=== PATIENT | female | born 1995 | race African-American/Black ===

== ENCOUNTER 2016-11-20 08:11 | Emergency (ER) | payer OTHER ==
[2016-11-20] MEDS ORDERED: IBUP-1022 PO (08:34)
[2016-11-20] MEDS ORDERED: ACETAMINOPHEN 325 MG TAB PO ONE (09:00)
[2016-11-20 10:24] LABS: MICROSCOPIC INDICATED? NO (NO)
[2016-11-20 11:16] VITALS: BP 136/70
== END 2016-11-20 11:17 | disposition home or self-care (01) ==
LOC: EDBD 08:11 → M ED 08:11
DX: R10.2 Pelvic and perineal pain (principal); N93.8 Other specified abnormal uterine and vaginal bleeding; Z97.5 Presence of (intrauterine) contraceptive device

== ENCOUNTER 2018-04-02 11:21 | Emergency (ER) | payer OTHER ==
[~2018-04-02] VITALS: Ht 175.3 cm; Wt 91.4 kg
[~2018-04-02 11:21] MED LIST: IBUP-1022 PO
[2018-04-02] MEDS ORDERED: NS 1,000 ML IV ONE (12:15)
[2018-04-02 12:24] LABS: URINE PREG TEST POSITIVE (NEGATIVE)
[2018-04-02 12:44] LABS: BASO % 0.6 % (0.0-1.0); EOS # 0.2 10^3/uL (0.0-0.50); EOS % 3.2 % (0.0-3.0); HEMATOCRIT 37.8 % (36.0-47.0); HEMOGLOBIN 12.3 g/dl (12.0-15.5); LYMPH # 2.5 10^3/uL (1.5-6.5); LYMPH % 38.1 % (24.0-44.0); MEAN CORPUSCULAR HEMOGLOBIN 30.8 pg (27.0-33.0); MEAN CORPUSCULAR HGB CONC 32.5 g/dl (32.0-36.5); MEAN CORPUSCULAR VOLUME 94.7 fl (80.0-96.0); MONO # 0.7 10^3/uL (0.0-0.8); MONO % 10.2 % (0.0-5.0); NEUTROPHILS # 3.1 10^3/uL (1.8-7.7); NEUTROPHILS % 47.7 % (36.0-66.0); PLATELET COUNT, AUTOMATED 320 10^3/uL (150-450); RED BLOOD COUNT 3.99 10^6/uL (4.00-5.40); WHITE BLOOD COUNT 6.5 10^3/uL (4.0-10.0)
[2018-04-02 13:11] LABS: ALBUMIN 3.5 GM/DL (3.2-5.2); ALT/SGPT 18 U/L (12-78); AMYLASE 94 U/L (25-115); BILIRUBIN,DIRECT 0.3 MG/DL (0.0-0.2); BLOOD UREA NITROGEN 14 MG/DL (7-18); CALCIUM LEVEL 9.1 MG/DL (8.5-10.1); CARBON DIOXIDE LEVEL 26 MEQ/L (21-32); CHLORIDE LEVEL 106 MEQ/L (98-107); CREATININE FOR GFR 0.87 MG/DL (0.55-1.30); GLOMERULAR FILTRATION RATE > 60.0 (>60); GLUCOSE, FASTING 77 MG/DL (70-100); LIPASE 177 U/L (73-393); POTASSIUM SERUM 4.2 MEQ/L (3.5-5.1); SODIUM LEVEL 139 MEQ/L (136-145); TOTAL PROTEIN 7.1 GM/DL (6.4-8.2)
[2018-04-02 13:28] LABS: HCG, SERUM QUANTITATIVE 296 MIU/ML
--- NOTE | 2018-04-02 14:52 | REP ---
Obstetric sonography: First trimester study. History: Beta hCG level 296. Left pelvic pain. Rule out ectopic. Findings: Transabdominal and transvaginal scanning are performed. Uterine dimensions are 8.7 x 4.5 x 6.0 cm. Endometrial echo is 1.4 cm thick and centrally placed. No intrauterine gestation is seen. There is a trace of endometrial fluid. There is a small amount of fluid in the posterior cul-de-sac and left adnexal region. No adnexal mass lesion is seen. There is a 2.9 x 1.7 x 2.2 cm hypoechoic cyst in the left ovary consistent with hemorrhagic corpus luteum. The left ovarian dimensions are 5.2 x 2.1 x 3.0 cm. A normal right ovary seen measuring 3.1 x 1.3 x 1.3 cm. Impression: No intrauterine gestation seen. A small amount of cul-de-sac fluid is seen. 2.9 cm hypoechoic cystic area left ovary. Sonographic findings are nonspecific. Early IUP versus spontaneous AB versus ectopic. Clinical and possibly sonographic followup is recommended. Electronically Signed by Mauricio Rm MD 04/02/2018 07:58 P
[2018-04-02 15:46] VITALS: BP 138/92
== END 2018-04-02 15:55 | disposition home or self-care (01) ==
LOC: M ED 11:21
DX: N83.202 Unspecified ovarian cyst, left side (principal); Z32.01 Encounter for pregnancy test, result positive

== ENCOUNTER 2018-05-09 10:55 | Emergency (ER) | payer OTHER ==
[~2018-05-09] VITALS: Ht 175.3 cm; Wt 87.3 kg
[2018-05-09] MEDS ORDERED: VITA200016 PO (11:11)
[2018-05-09] MEDS ORDERED: SERT50TA PO (11:11)
[2018-05-09] MEDS ORDERED: PRENTAB55 PO (11:11)
[2018-05-09 12:42] VITALS: BP 111/60
[2018-05-09] MEDS ORDERED: ACETAMINOPHEN TAB 650MG DOSE (2X325MG) PO ONE (12:45)
--- NOTE | 2018-05-09 12:45 | REP ---
First trimester obstetric ultrasound for pelvic cramping after a fall stat request: There is an intrauterine gestational sac with a pole. heart rate is 178 beats per minute. There is no subchorionic hematoma. The pole crown-rump length is 3.2 cm. This corresponds to a gestational age of 10 weeks 1 day/SUSANNA of 12/04/2018. Gestational age by LMP is 9 weeks 2 days/SUSANNA 10/09/2018. The maternal adnexa and cul-de-sac are unremarkable. There is vascular flow in both ovaries. The Doppler resistive index of the parenchymal arteries of the right ovary is 0.70 left ovary joule 0.55. There is no free fluid in the pelvis. Electronically Signed by Omi Villegas MD 05/09/2018 12:36 P
== END 2018-05-09 12:53 | disposition home or self-care (01) ==
LOC: M ED 10:55
DX: O9A.211 Injury, poisoning and certain other consequences of external causes complicating pregnancy, first trimester (principal); M54.5 Low back pain; W00.0XXA Fall on same level due to ice and snow, initial encounter; Y92.410 Unspecified street and highway as the place of occurrence of the external cause; Z3A.10 10 weeks gestation of pregnancy; Z79.899 Other long term (current) drug therapy

== ENCOUNTER 2018-06-14 17:22 | Emergency (ER) | payer OTHER ==
[~2018-06-14] VITALS: Ht 175.3 cm; Wt 88.6 kg
[~2018-06-14 17:22] MED LIST changes: +PRENTAB55 PO; +SERT-141 PO; +VITA200016 PO
[2018-06-14] MEDS ORDERED: ACETAMINOPHEN TAB 650MG DOSE (2X325MG) PO ONE (19:15)
[2018-06-14 19:56] LABS: HEMATOCRIT 33.2 % (36.0-47.0); HEMOGLOBIN 10.7 g/dl (12.0-15.5); MEAN CORPUSCULAR HGB CONC 32.2 g/dl (32.0-36.5); MEAN CORPUSCULAR VOLUME 96.2 fl (80.0-96.0); PLATELET COUNT, AUTOMATED 326 10^3/uL (150-450); RED BLOOD COUNT 3.45 10^6/uL (4.00-5.40); WHITE BLOOD COUNT 11.8 10^3/uL (4.0-10.0)
[2018-06-14 20:14] LABS: ACETAMINOPHEN LEVEL < 2.0 UG/ML (10.0-30.0); ALBUMIN 2.8 GM/DL (3.2-5.2); ALT/SGPT 23 U/L (12-78); BILIRUBIN,DIRECT < 0.1 MG/DL (0.0-0.2); BILIRUBIN,TOTAL 0.2 MG/DL (0.2-1.0); BLOOD UREA NITROGEN 9 MG/DL (7-18); CALCIUM LEVEL 8.5 MG/DL (8.5-10.1); CARBON DIOXIDE LEVEL 26 MEQ/L (21-32); CHLORIDE LEVEL 105 MEQ/L (98-107); CREATININE FOR GFR 0.64 MG/DL (0.55-1.30); ETHYL ALCOHOL (ETHANOL) < 0.003 % (0.000-0.010); GLOMERULAR FILTRATION RATE > 60.0 (>60); GLUCOSE, FASTING 107 MG/DL (70-100); POTASSIUM SERUM 3.8 MEQ/L (3.5-5.1); SALICYLATE LEVEL < 1.7 MG/DL (5.0-30.0); SODIUM LEVEL 138 MEQ/L (136-145); THYROID STIMULATING HORMONE 0.504 uIU/ML (0.358-3.740); TOTAL PROTEIN 6.4 GM/DL (6.4-8.2)
[2018-06-14 20:19] LABS: AMPHETAMINES LEVEL URINE NEGATIVE (NEGATIVE); BARBITURATES URINE NEGATIVE (NEGATIVE); BENZODIAZEPINES URINE NEGATIVE (NEGATIVE); CANNABINOIDS URINE NEGATIVE (NEGATIVE); COCAINE METABOLITE URINE NEGATIVE (NEGATIVE); METHADONE URINE NEGATIVE (NEGATIVE); OPIATES URINE NEGATIVE (NEGATIVE); PHENCYCLIDINE URINE NEGATIVE (NEGATIVE)
[2018-06-14 22:54] VITALS: BP 108/62
== END 2018-06-14 22:57 | disposition home or self-care (01) ==
LOC: M ED 17:22
DX: O99.342 Other mental disorders complicating pregnancy, second trimester (principal); Z79.899 Other long term (current) drug therapy
CPT/HCPCS: 80048; 80076; 80307; 84443; 85027; 99284; G0480

== ENCOUNTER 2018-09-22 12:31 | Outpatient (CLI) | payer OTHER ==
[~2018-09-22] VITALS: Ht 175.3 cm; Wt 93.8 kg
[2018-09-22 12:50] VITALS: BP 116/72
[2018-09-22] MEDS ORDERED: MAPA500T2 PO (13:13)
[2018-09-22 14:19] VITALS: BP 103/55
[2018-09-22 16:04] VITALS: BP 107/57
== END 2018-09-22 17:36 | disposition home or self-care (01) ==
LOC: M LDO 12:31
PROVIDERS: ATTEND Obstetrics & Gynecology
DX: O26.893 Other specified pregnancy related conditions, third trimester (principal); R10.30 Lower abdominal pain, unspecified; W51.XXXA Accidental striking against or bumped into by another person, initial encounter; Z3A.27 27 weeks gestation of pregnancy
CPT/HCPCS: 59025; G0378; G0463

== ENCOUNTER 2019-02-18 15:00 | Emergency (ER) | payer MEDICAID, SELFPAY ==
[~2019-02-18] VITALS: Ht 175.3 cm; Wt 99.7 kg
[~2019-02-18 15:00] MED LIST changes: +MAPA500T2 PO
[2019-02-18 15:35] LABS: BASO % 0.5 % (0.0-1.0); EOS # 0.2 10^3/uL (0.0-0.5); EOS % 3.2 % (0.0-3.0); HEMATOCRIT 38.9 % (36.0-47.0); HEMOGLOBIN 12.2 g/dl (12.0-15.5); LYMPH # 3.6 10^3/uL (1.5-5.0); LYMPH % 46.9 % (24.0-44.0); MEAN CORPUSCULAR HEMOGLOBIN 30.3 pg (27.0-33.0); MEAN CORPUSCULAR HGB CONC 31.4 g/dl (32.0-36.5); MEAN CORPUSCULAR VOLUME 96.5 fl (80.0-96.0); MONO # 0.8 10^3/uL (0.0-0.8); MONO % 10.6 % (0.0-5.0); NEUTROPHILS # 2.9 10^3/uL (1.5-8.5); NEUTROPHILS % 38.5 % (36.0-66.0); PLATELET COUNT, AUTOMATED 336 10^3/uL (150-450); RED BLOOD COUNT 4.03 10^6/uL (4.00-5.40); WHITE BLOOD COUNT 7.6 10^3/uL (4.0-10.0)
[2019-02-18 15:58] LABS: ALBUMIN 3.2 GM/DL (3.2-5.2); ALT/SGPT 25 U/L (12-78); BILIRUBIN,DIRECT 0.1 MG/DL (0.0-0.2); BILIRUBIN,TOTAL 0.8 MG/DL (0.2-1.0); BLOOD UREA NITROGEN 16 MG/DL (7-18); CALCIUM LEVEL 8.9 MG/DL (8.5-10.1); CARBON DIOXIDE LEVEL 26 MEQ/L (21-32); CHLORIDE LEVEL 108 MEQ/L (98-107); CREATININE FOR GFR 0.81 MG/DL (0.55-1.30); GLOMERULAR FILTRATION RATE > 60.0 (>60); GLUCOSE, FASTING 89 MG/DL (70-100); LIPASE 89 U/L (73-393); SODIUM LEVEL 140 MEQ/L (136-145); TOTAL PROTEIN 7.1 GM/DL (6.4-8.2)
--- NOTE | 2019-02-18 18:27 | REP ---
PELVIC AND ENDOVAGINAL PROBE ULTRASOUND: 02/18/2019. Clinical history: Pelvic pain since vaginal delivery 11/23/2018. The patient had IUD placed subsequent to delivery. Today acute left lower quadrant pain. Findings: Sonographic evaluation with transabdominal and endovaginal probes was performed. Bladder measured 7.6 x 6.6 x 4.8 cm. Uterus is anteverted measuring 7.5 x 4.5 x 5.8 cm. No uterine mass or contour abnormality. Endometrial echogenic stripe has an IUD in place with shadowing. No fluid collection or mass involving the endometrial cavity, although shadowing by the IUD limits evaluation. Tiny Nabothian cyst in the cervix. The right ovary is 3.1 x 1.7 x 1.8 cm giving an ovarian volume of 5 mL. There is a complex follicle 1.8 x 1.6 x 1.6 cm. Doppler tracing shows resistive index 0.37 with blood flow normal. The left ovary 2.5 x 1.0 x 1.2 cm giving a mean ovarian volume 1.7 mL. Right ovary has normal Doppler tracing 0.41 resistive index. There is a trace amount of free fluid in the pelvis. No torsion. Impression: 1. There is a complex follicle right ovary 1.8 x 1.6 x 1.6 cm (cyst defined at 2.5 cm). 2. Both ovaries show normal blood flow and Doppler tracings, no torsion. Small amount of pelvic free fluid. 3. Uterus anteverted, not enlarged and there is an IUD in the endometrial cavity with shadowing. No gross uterine contour abnormality. Electronically Signed by Campos Ray MD 02/18/2019 08:02 P
[2019-02-18] MEDS ORDERED: FLAG500T PO (18:28)
[2019-02-18] MEDS ORDERED: IBUP-1022 PO (18:28)
[2019-02-18 18:44] VITALS: BP 130/77
[2019-02-18 19:39] LABS: CHLAMYDIA DNA AMPLIFICATION NEGATIVE (NEGATIVE); GC DNA AMPLIFICATION NEGATIVE (NEGATIVE)
== END 2019-02-18 18:46 | disposition home or self-care (01) ==
LOC: M ED 15:00
DX: N83.201 Unspecified ovarian cyst, right side (principal); N76.0 Acute vaginitis; Z97.5 Presence of (intrauterine) contraceptive device; J30.2 Other seasonal allergic rhinitis